=== PATIENT | female | born 1970 | race Caucasian/White ===

== ENCOUNTER 2017-08-10 17:39 | Emergency (ER) | payer OTHER ==
[~2017-08-10] VITALS: Ht 160 cm; Wt 86.2 kg
[~2017-08-10 17:39] MED LIST: LORA10TA7 PO; PROM25TA5 PO; TAB-TAB PO
[2017-08-10 17:48] VITALS: BP 155/73; PULSE 94; RESP 16; TEMP 99; O2SAT 97
[2017-08-10] MEDS ORDERED: CLAR10CA3 PO (18:08)
[2017-08-10] MEDS ORDERED: MULT-65 PO (18:08)
[2017-08-10] MEDS ORDERED: BIRTH CONTROL PO (18:10)
[2017-08-10] MEDS ORDERED: DEXAMETHASONE SOD PHOS 4 MG/ML VIAL IM ONE (18:30)
--- NOTE | 2017-08-10 18:37 | PD ---
HPI Chief Complaint: Cold / Flu Symptoms Time Seen by Provider: 18:15 Travel History International Travel<30 days: No Contact w/Intl Traveler<30days: No Traveled to known affect area: No History of Present Illness HPI This is a 46-year-old female who presents to the emergency department with 1 week of sore throat, constant, severe associated with productive cough with green sputum. She denies any fevers or chills. She has swollen nodes in her neck. She has a history of recurrent strep. She took 5 days of amoxicillin but does not feel any better so she comes to the emergency department. PFSH Past Medical History Cancer: No Cardiovascular Problems: No Diabetes: No Diminished Hearing: No Endocrine: No Glaucoma: No Genitourinary: No Hepatitis: No Hiatal Hernia: No Hypertension: No Immune Disorder: No Musculoskeletal: Yes (BACK PAIN) Neurologic: Yes (LEFT LEG SCIATICA) Psychiatric: No Reproductive: Yes (SEASONAL ALLERGIES) Respiratory: No Thyroid Disease: No Tetanus Vaccination: Unknown Influenza Vaccination: No ?: Not LMP: 08/05/17 Tubal Ligation: Yes Past Surgical History Abdominal Surgery: Yes (APPY) AICD: No Appendectomy: Yes Cardiac Surgery: No Endocrine Surgery: No Gynecologic Surgery: Yes (TUBAL LIGATION, ENDOMETRIAL ABLATION) Joint Replacement: No Pacemaker: No Thoracic Surgery: No Other Surgery: Yes Social History Alcohol Use: No Tobacco Use: No Substance Use: No Allergies-Medications (Allergen,Severity, Reaction): Coded Allergies: aspirin (Unverified Allergy, Severe, PASS OUT, 08/10/17) Reported Meds & Prescriptions Reported Meds & Active Scripts Active Reported [ Control] Unknown Dose PO DAILY Multi-Vitamin Daily (Multiple Vitamin) 1 Tab Tab 1 Tab PO DAILY Claritin (Loratadine) 10 Mg Cap 10 Mg PO DAILY PRN Review of Systems Except as stated in HPI: all other systems reviewed are Neg Physical Exam Narrative GENERAL:Well appearing, no acute distress SKIN: Focused skin assessment warm and dry. HEAD: Atraumatic. Normocephalic. EYES: Pupils equal and round. No injection or drainage. ENT: Exudate on the left tonsil, posterior pharyngeal erythema with no uvular deviation, tender anterior cervical lymphadenopathy NECK: Trachea midline. CARDIOVASCULAR: Regular rate and rhythm. No murmur appreciated. RESPIRATORY: Clear to auscultation. Breath sounds equal bilaterally. GASTROINTESTINAL: Abdomen soft, non-tender, nondistended. MUSCULOSKELETAL: No obvious deformities. NEUROLOGICAL: Awake and alert. No obvious cranial nerve deficits. Moving all extremities. PSYCHIATRIC: Appropriate mood and affect; insight and judgment normal. Data Data Last Documented VS Vital Signs Date Time Temp Pulse Resp B/P (MAP) Pulse Ox O2 Delivery O2 Flow Rate FiO2 08/10/17 18:03 Room Air 08/10/17 17:48 99.0 94 16 155/73 (100) 97 Orders Orders Group A Rapid Strep Screen (08/10/17 18:21) Dexamethasone Inj (Decadron Inj) (08/10/17 18:30) Strep Culture (Group A) (08/10/17 18:25) MDM Medical Decision Making Medical Screen Exam Complete: Yes Emergency Medical Condition: Yes Interpretation(s) Rapid strep is negative Differential Diagnosis Strep pharyngitis, viral pharyngitis, mononucleosis, peritonsillar abscess Narrative Course This is a 46-year-old female who presents to the emergency department with 1 week of sore throat. She has exudates on the left tonsil and tender anterior cervical lymphadenopathy. She has a negative rapid strep. She is concerned about mononucleosis test was sent but I do not think it will twisting frame changer. Patient has significant laryngitis and edema of the tonsils so she was given a dose of IM Decadron. I think she is safe for discharge and follow-up with a primary care physician as an outpatient. Diagnosis Primary Impression: Viral pharyngitis Patient Instructions: General Instructions Additional Instructions: If you develop worsening sore throat, high fevers, inability to eat or drink return to the emergency room. Follow-up with your primary care physician as an outpatient. Med/Other Pt SpecificInfo: No Change to Meds Disposition: 01 DISCHARGE HOME Condition: Stable Gwen Lowery MD Aug 10, 2017 18:37
[2017-08-10 22:20] LABS: MONOSCREEN NEG (NEG)
== END 2017-08-10 19:33 | disposition home or self-care (01) ==
LOC: PHEFT 17:39
DX: J02.8 Acute pharyngitis due to other specified organisms (principal); B97.89 Other viral agents as the cause of diseases classified elsewhere; R05 Cough
CPT/HCPCS: 86308; 87081; 87880; 96372; 99283; J1100